=== PATIENT | female | born 1990 | race Caucasian/White ===

== ENCOUNTER 2019-11-29 16:14 | Inpatient (IN) | payer OTHER ==
[2019-11-29 16:57] VITALS: BMI 40.3
[2019-11-29] MEDS ORDERED: Bupivacaine HCl 0.5%/Epinephrine 1:200,000/PF 30 ml Vial ONE (16:59)
[2019-11-29] MEDS ORDERED: Bupivacaine/Epinephrine 0.25% 30 ML VIAL ONE (16:59)
[2019-11-29] MEDS ORDERED: Acetaminophen 500 MG TAB PO PRN (17:05)
[2019-11-29] MEDS ORDERED: Butorphanol Tartrate 1 MG/ML VIAL SLOW IVP PRN (17:05)
[2019-11-29] MEDS ORDERED: Misoprostol 200 MCG TAB PR PRN (17:05)
[2019-11-29] MEDS ORDERED: Promethazine HCl 25 MG/ML VIAL IM PRN ×2 (17:05→18:36)
[2019-11-29] MEDS ORDERED: Ibuprofen 800 MG TAB PO PRN (17:05)
[2019-11-29] MEDS ORDERED: hydrALAZINE 20 MG/ML VIAL SLOW IVP PRN (17:05)
[2019-11-29] MEDS ORDERED: HYDROcodone/Acetaminophen 5/325 mg Tablet PO PRN (17:05)
[2019-11-29] MEDS ORDERED: Diphenoxylate HCl/Atropine Tablet PO PRN (17:05)
[2019-11-29] MEDS ORDERED: Methylergonovine 0.2 MG/ML VIAL IM PRN (17:05)
[2019-11-29] MEDS ORDERED: Lidocaine 1% (PF) 30 ML VIAL SC PRN (17:05)
[2019-11-29] MEDS ORDERED: Ondansetron PF 4 MG/2 ML Vial IVP PRN ×2 (17:05→18:36)
[2019-11-29] MEDS ORDERED: Carboprost 250 MCG/ML AMP IM PRN (17:05)
[2019-11-29] MEDS ORDERED: Lidocaine 1% (PF) 30 ML VIAL ONE (17:32)
[2019-11-29] MEDS: Lactated Ringer's 1,000 ML IV SCH ×3 (17:45→22:05)
[2019-11-29 17:47] LABS: Mean Corpuscular HGB CONC 34.2 g/dL (32.0-36.0); Mean Corpuscular Hemoglobin 31.9 pg (27.0-31.0); Mean Corpuscular Volume 93.4 fL (78.0-98.0); Mean Platelet Volume 8.5 fL (7.4-10.4); Platelet Count 281 thou/uL (130-400); RBC Distribution Width 11.9 % (11.5-14.5); Red Blood Cell (RBC) Count 4.38 mill/uL (4.20-5.40); White Blood Cell (WBC) Count 20.8 thou/uL (4.8-10.8)
[2019-11-29] MEDS ORDERED: Fentanyl 4 mcg/Bup 0.1% Cadd 100 ML ONE (17:47)
[2019-11-29] MEDS ORDERED: Fentanyl 100 MCG/2 ML VIAL ONE (18:15)
[2019-11-29 18:29] LABS: HBSAg Index 0.26 S/CO (0-0.99); HIV (1/2) Antibody/Antigen Non-Reactive (NonReactive); HIV 1/2 INDEX 0.12 S/CO (<1.00); Hep B Surf Ag Non-Reactive S/CO (NonReactive)
[2019-11-29] MEDS ORDERED: Naloxone HCl 0.4 mg/ml Vial IVP PRN ×2 (18:36)
[2019-11-29] MEDS ORDERED: diphenhydrAMINE 50 MG/ML VIAL IVP PRN (18:36)
[2019-11-29] MEDS ORDERED: ePHEDrine/0.9% NaCl/PF SYRINGE 50 mg/10 ml SLOW IVP PRN (18:36)
[2019-11-29] MEDS ORDERED: Acetaminophen 325 MG TAB PO PRN (18:36)
[2019-11-29] MEDS ORDERED: Lactated Ringer's 500 ML IV PRN (18:36)
[2019-11-29 18:42] LABS: Syphilis Antibody Nonreactive (Nonreactive); Syphilis Antibody Index 0.05 S/CO (<1.00 Non-Reactive)
--- NOTE | 2019-11-29 18:43 | PDOC.LDHP ---
Labor and Delivery H&P Chief complaint: loss of fluid HPI: 29 yo @ 39w6d admitted for SROM/labor. 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 Current gestational age (weeks): 39 Due date: 11/30/19 Dating criteria: last menstrual period Grav: 1 Para: 0 Current complications: none Abnormal US findings: No Past Medical History: Denies Current medications: pre- vitamins Previous surgical history: none Allergies/Adverse Reactions: Allergies Allergy/AdvReac Type Severity Reaction Status Date / Time No Known Allergies Allergy Unverified 11/29/19 16:48 Social history: none - Physical Exam Vital signs reviewed and normal: yes Abnormal vital signs: One mild BP, repeat wnl General: NAD Heart: RRR Lungs: nonlabored breathing Abdomen: gravid Extremeties: no edema FHT: category 1 (130s, mod [place], +accels, no decels) [place] contractions every: q2-3 min - Vaginal Exam cm dilated: 4 (gross SROM and cephalic per RN ) Effacement: 100% Station: 0 - OB Labs Blood type: O RH: negative Antibody Screen: negative HIV: negative RPR: negative HEPSAg: negative 1 hour GCT: negative GBS: negative Urine drug screen: negative Rubella: immune - Assessment 39w6d IUP SROM Labor Rh neg 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
[2019-11-29] MEDS ORDERED: Communication Order-Pharmacy FS SCH (18:45)
[2019-11-29] MEDS ORDERED: Fentanyl 4 mcg/Bupivacaine 0.1% Cassette 100 ML EPIDURAL SCH (18:45)
[2019-11-30] MEDS: NS / Oxytocin 40 units/1000ml 1,000 ML IV PRN ×2 (01:33→03:13)
[2019-11-30] MEDS ORDERED: Lidocaine 1% (PF) 30 ML VIAL ONE (01:36)
--- NOTE | 2019-11-30 01:53 | PDOC.OPDEL ---
OB Operative/Delivery Note Delivery Dr/Surgeon: Cinthya Butt DO Pre-Delivery Diagnosis: active labor Procedure/Post Delivery Dx: spontaneous vaginal delivery Weeks gestation: 40 Anesthesia: epidural - Findings A Sex: female - 1 min: 8 - 5 min: 9 - Additional Findings/Plan Placenta delivered: spontaneous Repaired Obstetrical Laceration: 2nd degree Estimated blood loss: QBL 94 cc Compilations/Other Findings: in YENI position Normal appearing placenta Clear amniotic fluid Post delivery plan: routine recovery
[2019-11-30] MEDS ORDERED: Preparation H Ointment 28 GM TUBE PR PRN (03:35)
[2019-11-30] MEDS ORDERED: Lanolin Ointment 7 GM TUBE TOP PRN (03:35)
[2019-11-30] MEDS ORDERED: NS / Oxytocin 40 units/1000ml 1,000 ML IV SCH (03:35)
[2019-11-30] MEDS ORDERED: diphenhydrAMINE 25 MG CAP PO PRN (03:35)
[2019-11-30] MEDS ORDERED: hydrALAZINE 20 MG/ML VIAL SLOW IVP PRN (03:35)
[2019-11-30] MEDS ORDERED: Milk Of Magnesia 30 ML UDCUP PO PRN (03:35)
[2019-11-30] MEDS ORDERED: Misoprostol 200 MCG TAB VAG PRN (03:35)
[2019-11-30] MEDS ORDERED: HYDROcodone/Acetaminophen 5/325 mg Tablet PO PRN (03:35)
[2019-11-30] MEDS ORDERED: Bisacodyl 10 MG SUPP PR PRN (03:35)
[2019-11-30] MEDS ORDERED: Methylergonovine 0.2 MG/ML VIAL IM PRN (03:35)
[2019-11-30] MEDS ORDERED: Benzocaine-Menthol 82.5 ML CAN TOP PRN (05:46)
[2019-11-30] MEDS: Ibuprofen 800 MG TAB PO SCH ×3 (05:48→21:57)
[2019-11-30 11:10] LABS: Hemoglobin 12.8 g/dL (12.0-16.0); Mean Corpuscular HGB CONC 33.9 g/dL (32.0-36.0); Mean Corpuscular Hemoglobin 32.4 pg (27.0-31.0); Mean Corpuscular Volume 95.5 fL (78.0-98.0); Mean Platelet Volume 8.2 fL (7.4-10.4); Platelet Count 275 thou/uL (130-400); RBC Distribution Width 11.9 % (11.5-14.5); Red Blood Cell (RBC) Count 3.97 mill/uL (4.20-5.40); White Blood Cell (WBC) Count 19.1 thou/uL (4.8-10.8)
[2019-11-30] MEDS: Docusate Calcium (SURFAK) 240 MG CAP PO SCH ×2 (13:27→21:57)
[2019-11-30] MEDS: Prenatal Vitamin 1 TAB PO SCH (13:27)
--- NOTE | 2019-11-30 13:43 | PDOC.PP ---
Post Progress Note Post Day #: 1 Subjective: LATE ENTRY PN from this AM No concerns. Minimal pain and bleeding. Breast feeding. Voiding. PO intake tolerated: yes Flatus: yes Ambulation: yes Vital Signs (12 hours) Temp Pulse Resp BP Pulse Ox 11/30/19 12:09 97.9 F 88 20 102/63 11/30/19 08:00 97 11/30/19 07:30 98.4 F 87 20 112/60 97 11/30/19 05:50 98.3 F 92 18 126/76 98 11/30/19 04:30 98.2 F 75 18 104/57 L 98 Weight Weight 235 lb - Physical Examination General: NAD Cardiovascular: RRR Respiratory: non-labored breathing Abdominal: no distention, appropriately TTP Fundus firm & at: below umbilicus on pt right side Extremities: negative homans (B) Neurological: no gross focal deficits Psychiatric: A&Ox3, normal affect Result Diagrams: 11/30/19 10:52 Additional Labs: Post Labs Blood Type O NEGATIVE 11/29/19 19:04 Hep Bs Antigen Non-Reactive S/CO (NonReactive) 11/29/19 17:26 (1) Vaginal delivery Code(s): O80 - ENCOUNTER FOR FULL-TERM UNCOMPLICATED DELIVERY Status: Acute (2) Bicornuate uterus Code(s): Q51.3 - BICORNATE UTERUS Status: Acute - Assessment/Plan PPD1 VSSAF Continue PP care LC today Plan for d/c tomorrow
[2019-12-01] MEDS: Ibuprofen 800 MG TAB PO SCH ×3 (05:27→23:45)
--- NOTE | 2019-12-01 05:39 | PDOC.PP ---
Post Progress Note Post Day #: 2 Subjective: Doing well PO intake tolerated: yes Flatus: yes Ambulation: yes Vital Signs (12 hours) Temp Pulse Resp BP Pulse Ox 11/30/19 20:15 98.3 F 79 18 118/61 98 Weight Weight 235 lb Vitals reviewed over last 24 hrs - Physical Examination General: NAD Respiratory: non-labored breathing Abdominal: lochia, no distention, appropriately TTP Extremities: negative homans (B) Neurological: no gross focal deficits Psychiatric: A&Ox3, normal affect Result Diagrams: 11/30/19 10:52 Additional Labs: Post Labs Blood Type O NEGATIVE 11/29/19 19:04 Hep Bs Antigen Non-Reactive S/CO (NonReactive) 11/29/19 17:26 (1) Vaginal delivery Code(s): O80 - ENCOUNTER FOR FULL-TERM UNCOMPLICATED DELIVERY Status: Acute - Assessment/Plan G1 now P1...stable for DC to home today Routine PP care
[2019-12-01] MEDS: Docusate Calcium (SURFAK) 240 MG CAP PO SCH ×2 (08:41→23:45)
[2019-12-01] MEDS: Prenatal Vitamin 1 TAB PO SCH (08:41)
[2019-12-02] MEDS: Ibuprofen 800 MG TAB PO SCH ×2 (06:04→13:43)
--- NOTE | 2019-12-02 08:00 | PDOC.PP ---
Post Progress Note Post Day #: 2 Subjective: Pain and lochia minimal. Breast feeding, infant having difficulty latching. has lost 10% weight per pt report. LC today. Considering pumping. PO intake tolerated: yes Flatus: yes Ambulation: yes Vital Signs (12 hours) Temp Pulse Resp BP Pulse Ox 12/01/19 20:45 98.2 F 75 16 121/59 L 100 Weight Weight 235 lb - Physical Examination General: NAD Cardiovascular: RRR Respiratory: non-labored breathing Abdominal: no distention, appropriately TTP Fundus firm & at: below umbilicus Extremities: negative homans (B) Neurological: no gross focal deficits Psychiatric: A&Ox3, normal affect Result Diagrams: 11/30/19 10:52 Additional Labs: Post Labs Blood Type O NEGATIVE 11/29/19 19:04 Hep Bs Antigen Non-Reactive S/CO (NonReactive) 11/29/19 17:26 (1) Vaginal delivery Code(s): O80 - ENCOUNTER FOR FULL-TERM UNCOMPLICATED DELIVERY Status: Acute (2) Bicornuate uterus Code(s): Q51.3 - BICORNATE UTERUS Status: Acute (3) Rh negative status during Code(s): O26.899 - OTH RELATED CONDITIONS, UNSPECIFIED TRIMESTER; Z67.91 - UNSPECIFIED BLOOD TYPE, RH NEGATIVE Status: Acute - Assessment/Plan PPD2 VSSAF Continue LC help today Plan for d/c this PM. Infant also rh neg
[2019-12-02 08:23] VITALS: BP 112/67; TEMP 98
[2019-12-02] MEDS: Docusate Calcium (SURFAK) 240 MG CAP PO SCH (08:26)
[2019-12-02] MEDS: Prenatal Vitamin 1 TAB PO SCH (08:26)
== END 2019-12-02 17:15 | disposition home or self-care (01) | DRG 807 ==
LOC: L&D/OP 16:14 → L&D 18:12 → 3SW 11-30 04:34
PROVIDERS: ADMIT Obstetrics & Gynecology; ATTEND Obstetrics & Gynecology
PROC: 10E0XZZ Delivery of Products of Conception, External Approach (ICD-10-PCS; principal; 2019-11-30)
PROC: 0KQM0ZZ Repair Perineum Muscle, Open Approach (ICD-10-PCS; 2019-11-30)
DX: O34.03 Maternal care for unspecified congenital malformation of uterus, third trimester (principal); Z37.0 Single live birth; Q51.3 Bicornate uterus; O70.1 Second degree perineal laceration during delivery; Z3A.39 39 weeks gestation of pregnancy; O26.893 Other specified pregnancy related conditions, third trimester
CPT/HCPCS: 36415; 51702; 85027; 86780; 86850; 86900; 86901; 87340; 87389; 99285; J0670; J1200; J2001; J2405; J3010